=== PATIENT | female | born 1950 | race African-American/Black ===

== ENCOUNTER 2017-10-14 13:42 | Emergency (ER) | payer MEDICARE, MEDICAID ==
[~2017-10-14] VITALS: Ht 157.5 cm; Wt 66.0 kg
[~2017-10-14 13:42] MED LIST: NAPROXEN; SIMVASTATIN
[2017-10-14] MEDS ORDERED: TRAMADOL HCL/ACETAMINOPHEN 37.5/325MG TABLET PO ONE (15:42)
[2017-10-14 15:57] VITALS: BP 145/72
== END 2017-10-14 17:28 | disposition left against medical advice (07) ==
LOC: ER 14:20
DX: M54.40 Lumbago with sciatica, unspecified side (principal); G89.29 Other chronic pain; M79.672 Pain in left foot; E78.00 Pure hypercholesterolemia, unspecified; Z88.6 Allergy status to analgesic agent
CPT/HCPCS: 99283

== ENCOUNTER 2022-06-26 11:53 | Inpatient (IN) | payer MEDICARE, MEDICAID ==
[~2022-06-26] VITALS: Ht 167.6 cm; Wt 77.6 kg
[~2022-06-26 11:53] MED LIST changes: +ERGO1250; +FERR325T6 PO; +GABA-290 PO; +HYDR-4001 MT; +HYDR25TA PO; +LOSA25TA26 PO; +PANT20TA17 PO
[2022-06-26] MEDS ORDERED: SODIUM CHLORIDE 0.9% 1,000 ML IV ONE (12:15)
[2022-06-26] MEDS ORDERED: FUROSEMIDE 40MG TABLET PO ONE (12:45)
[2022-06-26 13:12] LABS: HEMATOCRIT. 32.1 % (36.0-48.0); HEMOGLOBIN. 10.2 g/dL (12.0-16.0); MEAN CORPUSCULAR HEMOGLOBIN 30.9 pg (28.0-32.0); MEAN CORPUSCULAR VOLUME 97.5 fL (81.0-99.0); MEAN PLATELET VOLUME 9.1 fl (7.4-10.4); PLATELET 202 x1000/uL (130-400); RED BLOOD CELL COUNT 3.29 mill/uL (4.2-5.4)
[2022-06-26 13:12] LABS: CLARITY URINE CLEAR (CLEAR); COLOR URINE YELLOW (YELLOW); KETONES URINE TRACE (NEGATIVE); LEUKOCYTE ESTERASE URINE NEGATIVE (NEGATIVE); NITRITE URINE NEGATIVE (NEGATIVE); OCCULT BLOOD URINE NEGATIVE (NEGATIVE); PROTEIN URINE NEGATIVE (NEGATIVE); SPECIFIC GRAVITY URINE 1.018 (1.005-1.030); UROBILINOGEN URINE 0.2 E.U./dL (0.2-1.0)
[2022-06-26 13:20] LABS: CHLORIDE 104 mEq/L (98-107)
[2022-06-26 13:35] LABS: NUCLEATED RED BLOOD CELLS 1 /100 WBC
[2022-06-26 13:36] LABS: PLATELET ESTIMATE NORMAL
[2022-06-26] MEDS ORDERED: DOCUSATE SODIUM 100MG CAPSULE PO PRN (21:30)
[2022-06-26] MEDS ORDERED: MAGNESIUM/ALUMINUM HYDROXIDE/SIMETHICONE 30ML UDC PO PRN (21:30)
[2022-06-26] MEDS ORDERED: ONDANSETRON HCL 4MG/2ML INJ IV PRN (21:30)
[2022-06-26] MEDS ORDERED: IPRATROPIUM/ALBUTEROL 0.5-3(2.5)MG/3ML NEB NEB PRN (21:30)
[2022-06-26] MEDS ORDERED: SODIUM POLYSTYRENE SULFONATE 15 G/60 ML BOT PO NR (21:30)
[2022-06-26] MEDS ORDERED: GUAIFENESIN 200MG/10ML SUGAR FREE UDC PO PRN (21:30)
[2022-06-26] MEDS ORDERED: CEFTRIAXONE 1GM PREMIX 50 ML IV SCH (22:30)
[2022-06-26 23:00] VITALS: BP 151/64
[2022-06-26] MEDS ORDERED: AZITHROMYCIN 500 MG in DEXT 5% WATER 250 ML IV SCH (23:00)
[2022-06-26 23:30] VITALS: BP 151/64
[2022-06-27] VITALS (12 sets, daily range): BP systolic 127–193; BP diastolic 62–117
[2022-06-27 00:03] LABS: CREATINE KINASE MB FRACTION 1.2 ng/mL (0.5-3.6)
[2022-06-27] MEDS: ACETAMINOPHEN 325MG TABLET PO PRN ×3 (00:47→16:24)
[2022-06-27] MEDS: AMLODIPINE 5MG TABLET PO SCH ×2 (00:50→08:48)
[2022-06-27 01:04] LABS: PHOSPHORUS 4.9 mg/dL (2.5-4.9)
[2022-06-27 04:23] LABS: *AMPHETAMINES SCREEN URINE NEGATIVE (NEGATIVE); *BARBITURATES SCREEN URINE NEGATIVE (NEGATIVE); *BENZODIAZEPINES SCREEN URINE PRESUMTIVE POSITIVE (NEGATIVE); *COCAINE SCREEN URINE NEGATIVE (NEGATIVE); CANNABINOID URINE SCREEN NEGATIVE (NEGATIVE); OPIATES URINE SCREEN PRESUMTIVE POSITIVE (NEGATIVE); PHENCYCLIDINE URINE SCREEN NEGATIVE (NEGATIVE)
[2022-06-27 04:49] LABS: METHADONE URINE SCREEN PRESUMTIVE POSITIVE (NEGATIVE)
[2022-06-27 07:08] LABS: CHLORIDE 106 mEq/L (98-107)
[2022-06-27 07:13] LABS: HEMATOCRIT. 28.3 % (36.0-48.0); HEMOGLOBIN. 9.2 g/dL (12.0-16.0); MEAN CORPUSCULAR HEMOGLOBIN 31.5 pg (28.0-32.0); MEAN CORPUSCULAR VOLUME 97.1 fL (81.0-99.0); MEAN PLATELET VOLUME 8.7 fl (7.4-10.4); PLATELET 192 x1000/uL (130-400); RED BLOOD CELL COUNT 2.91 mill/uL (4.2-5.4); RED CELL DISTRIBUTION WIDTH 16.4 % (11.6-14.6)
[2022-06-27 07:24] LABS: CREATINE KINASE 114 IU/L (26-192); CREATINE KINASE MB FRACTION 1.6 ng/mL (0.5-3.6); T4 FREE 1.05 ng/dL (0.76-1.46)
[2022-06-27 08:19] LABS: VITAMIN B12 SERUM 661 pg/mL (211-911)
[2022-06-27] MEDS: ENOXAPARIN 30MG/0.3ML SYR SUBCUT SCH (08:48)
[2022-06-27 08:49] LABS: FOLIC ACID (FOLATE) SERUM > 20.00 ng/mL (>5.38)
[2022-06-27] MEDS ORDERED: SODIUM POLYSTYRENE SULFONATE 15 G/60 ML BOT PO SCH (09:00)
[2022-06-27 09:11] LABS: BG BASE EXCESS -4.7 mmol/L (-2.0-2.0); BG CARBOXYHEMOGLOBIN 0.3 % (0.5-1.5); BG DEOXYHEMOGLOBIN 4.6 % (0.0-5.0); BG FRACTION INSPIRED OXYGEN 28; BG HCO3 ACT 21.6 mmol/L (22.0-26.0); BG METHEMOGLOBIN 0.3 % (0.0-1.5); BG OXYGEN SATURATION 95.4 % (92.0-98.5); BG OXYHEMOGLOBIN 94.8 % (94.0-97.0); BG PCO2 45.1 mmHg (35.0-45.0); BG PH 7.298 (7.350-7.450); BG PO2 86.9 mmHg (75.0-100.0); BG SAMPLE SITE RIGHT RADIAL; BG TOTAL HEMOGLOBIN 9.9 g/dL (12.0-18.0); BG VENT MODE NASAL CANNULA
[2022-06-27] MEDS ORDERED: METHADONE HCL 10MG TABLET PO NR (13:30)
[2022-06-27] MEDS ORDERED: IPRATROPIUM/ALBUTEROL 0.5-3(2.5)MG/3ML NEB HHN SCH (14:00)
[2022-06-27] MEDS ORDERED: METHADONE HCL 5MG TABLET PO NR (14:30)
[2022-06-27] MEDS: CLONIDINE 0.1MG TABLET PO PRN (16:29)
[2022-06-27] MEDS ORDERED: CEFTRIAXONE 1GM PREMIX 50 ML IV SCH (20:00)
[2022-06-27] MEDS ORDERED: ATORVASTATIN CALCIUM 20MG TABLET PO SCH (21:00)
[2022-06-27] MEDS ORDERED: AZITHROMYCIN 500 MG in DEXT 5% WATER 250 ML IV SCH (21:00)
[2022-06-27] MEDS ORDERED: FAMOTIDINE 20MG TABLET PO SCH (21:00)
[2022-06-27 21:14] LABS: PLATELET ESTIMATE NORMAL
[2022-06-27] MEDS: HYDROCHLOROTHIAZIDE 25MG TABLET PO SCH (22:06)
[2022-06-27] MEDS: SODIUM CHLORIDE 0.9% 1,000 ML IV SCH (22:06)
[2022-06-28] VITALS: BP 178/67
[2022-06-28] MEDS: SODIUM CHLORIDE 0.9% 1,000 ML IV SCH (03:45)
[2022-06-28 04:00] VITALS: BP 163/79
[2022-06-28 05:55] LABS: BASOPHILS % 0.2 % (0.0-2.0); EOSINOPHILS % 3.4 % (0.0-5.0); HEMATOCRIT. 30.9 % (36.0-48.0); LYMPHOCYTES % 8.2 % (20.0-50.0); MEAN CORPUSCULAR HEMOGLOBIN 31.1 pg (28.0-32.0); MEAN CORPUSCULAR VOLUME 95.9 fL (81.0-99.0); MEAN PLATELET VOLUME 8.4 fl (7.4-10.4); MONOCYTES % 9.6 % (2.0-8.0); NEUTROPHILS % 78.6 % (40.0-76.0); PLATELET 212 x1000/uL (130-400); RED BLOOD CELL COUNT 3.22 mill/uL (4.2-5.4); RED CELL DISTRIBUTION WIDTH 15.4 % (11.6-14.6)
[2022-06-28 08:00] VITALS: BP 190/91
[2022-06-28] MEDS: HYDROCHLOROTHIAZIDE 25MG TABLET PO SCH (08:40)
[2022-06-28 08:41] LABS: PHOSPHORUS 2.6 mg/dL (2.5-4.9)
[2022-06-28] MEDS: ENOXAPARIN 30MG/0.3ML SYR SUBCUT SCH (08:41)
[2022-06-28] MEDS ORDERED: AMLODIPINE 10MG TABLET PO SCH (09:00)
[2022-06-28] MEDS ORDERED: LOSARTAN POTASSIUM 25 MG TABLET PO SCH (09:00)
[2022-06-28] MEDS ORDERED: METHADONE HCL 10MG TABLET PO SCH (09:00)
[2022-06-28] MEDS ORDERED: METHADONE HCL 5MG TABLET PO SCH (09:00)
[2022-06-28 09:03] LABS: CHLORIDE 106 mEq/L (98-107)
[2022-06-28] MEDS ORDERED: ASPI-1497 MT (09:32)
[2022-06-28] MEDS ORDERED: AMOX1TAB15 MT (09:32)
[2022-06-28] MEDS ORDERED: ATOR40TA70 MT (09:33)
[2022-06-28] MEDS ORDERED: MAGNESIUM 2 G PREMIX 50 ML IV NR (10:30)
[2022-06-28 11:52] VITALS: BP 151/90
[2022-06-28 12:00] VITALS: BP 169/64
[2022-06-28] MEDS: CLONIDINE 0.1MG TABLET PO PRN (12:38)
[2022-06-28 13:10] VITALS: BP 151/90
[2022-06-28] MEDS ORDERED: CEFTRIAXONE 1,000 MG in DEXTROSE 5% WATER 50 ML IV SCH (20:00)
== END 2022-06-28 13:55 | disposition home health service (06) | DRG 720 ==
LOC: ER 12:53 → EDBEDREQ 14:09 → 5EST 15:58 → EDBEDREQ 16:35 → EDBEDREQSVC 16:35 → EDBEDREQTM 16:35 → EDBEDREQSVC 20:37 → ENRESERV 21:16 → 7WST 06-27 17:20
PROVIDERS: ADMIT Internal Medicine; ATTEND Internal Medicine
PROC: 5A09357 Assistance with Respiratory Ventilation, Less than 24 Consecutive Hours, Continuous Positive Airway Pressure (ICD-10-PCS; principal; 2022-06-26)
DX: A41.9 Sepsis, unspecified organism (principal); J96.01 Acute respiratory failure with hypoxia; G93.41 Metabolic encephalopathy; N17.9 Acute kidney failure, unspecified; E44.0 Moderate protein-calorie malnutrition; J18.9 Pneumonia, unspecified organism; D63.8 Anemia in other chronic diseases classified elsewhere; E87.1 Hypo-osmolality and hyponatremia; Z20.822 Contact with and (suspected) exposure to COVID-19; N18.9 Chronic kidney disease, unspecified; E87.5 Hyperkalemia; F11.20 Opioid dependence, uncomplicated; I12.9 Hypertensive chronic kidney disease with stage 1 through stage 4 chronic kidney disease, or unspecified chronic kidney disease; F17.210 Nicotine dependence, cigarettes, uncomplicated; E78.00 Pure hypercholesterolemia, unspecified; R65.20 Severe sepsis without septic shock; Z82.49 Family history of ischemic heart disease and other diseases of the circulatory system; Z88.6 Allergy status to analgesic agent; Z96.653 Presence of artificial knee joint, bilateral; Z68.27 Body mass index [BMI] 27.0-27.9, adult
CPT/HCPCS: 36415; 36600; 71045; 74176; 76770; 78582; 80048; 80053; 80305; 81003; 82375; 82550; 82553; 82607; 82728; 82746; 82805; 83540; 83550; 83605; 83735; 83880; 84100; 84145; 84439; 84443; 84484; 85025; 85379; 87426; 87804; 93005; 93306; 93970; 94660; 97162; 97535; 99285; A9558; J0456; J0696; J1650; J3475; J7030; J7060